=== PATIENT | male | born 1980 | race Caucasian/White ===

== ENCOUNTER 2016-10-29 18:57 | Emergency (ER) | payer MEDICAID ==
--- NOTE | ~2016-10-29 | ER ---
PATIENT'S NAME: [facility] AGE: 36 Y [address] ROOM: [place] [id number] LOCATION: [facility] ADMIT DATE: 10/29/2016 ER/Outpatient Report DISCHARGE DATE: 10/29/2016 FAMILY PHYSICIAN: Jagruti Aquino ATTENDING PHYSICIAN: Danny Zapata Admission date and time documented in the medical record. I saw the patient at 1915 hours. CHIEF COMPLAINT: Neck pain. HISTORY OF PRESENT ILLNESS: The patient is a 36-year-old male, who has chronic neck pain mainly on the right lateral posterior neck. He has had at least 30-day history of pain. Sees Dr. Bernstein Orthopedic surgeon in [place]. The patient is moving his father to [place] from [place]. Doing a lot of lifting, pushing, pulling that he is not supposed to be doing. Dr. Bernstein wanted him not to lift or push anything greater than 5 to 10 pounds which he has not been abiding to. He complains of neck pain. He has a small soft cervical collar that is not functioning well for him. No pain down his arms, down his legs, into his chest or abdomen or lower back. No recent cough, cold, flus, fever, chills, or sweats. No fall or trauma. No lightheadedness, dizziness, syncope, or near syncope. No headache, eyes, ears, nose, throat pain. No history of neuro changes, psych issues, endocrine problems. HOME MEDICATIONS: See attached medication list. ALLERGIES: TRAMADOL, FLEXERIL. SOCIAL HISTORY: The patient smokes 5 to 6 cigarettes a day. Does drink alcohol. SIGNIFICANT PAST MEDICAL HISTORY: Chronic pain syndrome, tobacco abuse, alcohol abuse. REVIEW OF SYSTEMS: All systems reviewed by me are negative with exception of those discussed in the history of present illness. PHYSICAL EXAMINATION: VITAL SIGNS: Temperature 98, tympanic pulse 102, respirations 20, blood pressure 157/75, O2 saturation on room air is 93%. PATIENT'S NAME: [facility] AGE: 36 Y [address] ROOM: [place] [id number] LOCATION: [facility] ADMIT DATE: 10/29/2016 ER/Outpatient Report DISCHARGE DATE: 10/29/2016 FAMILY PHYSICIAN: Jagruti Aquino ATTENDING PHYSICIAN: Danny Zapata HEAD: Normocephalic. No abrasion, contusion, laceration, swelling of the scalp or face. EYES: Extraocular muscles intact. Pupils equal, round, and reactive to light. EARS: Clear TMs bilaterally. NOSE AND THROAT: Clear. Mucous membranes moist. NECK: The patient has tenderness right lateral neck, posterior neck. No nuchal rigidity. No thyromegaly or cervical adenopathy. SPINE: Negative. LUNGS: Clear. HEART: Regular. ABDOMEN: Soft, nontender. Good bowel tones. EXTREMITIES: Intact. NEUROVASCULAR: Intact. SKIN: Clear. No skin eruptions or rash. IMPRESSION: Chronic neck pain with exacerbation over the past 24 to 48 hours. PLAN: The patient was fitted with a better soft cervical collar. Discharged home. Observation. Activity as tolerated. Continue present home care and medications. Medrol Dosepak take as directed. Valium 5 mg 3 times a day #21. Follow with personal physician as scheduled on Friday. DANNY ZAPATA MD SDS/modl /[id number] d: 10/30/16 2318 t: 10/31/16 1808, OUTPATIENT REPORT
== END 2016-10-29 19:28 | disposition disaster alternative care site (69) ==
LOC: GMED 18:57
DX: G89.29 Other chronic pain (principal); M54.2 Cervicalgia; F17.210 Nicotine dependence, cigarettes, uncomplicated; Z88.5 Allergy status to narcotic agent; Z88.8 Allergy status to other drugs, medicaments and biological substances